=== PATIENT | female | born 1940 | race Caucasian/White ===

== ENCOUNTER 2016-05-12 15:38 | Emergency (ER) | payer OTHER ==
[2016-05-12 15:49] VITALS: BP 127/69; PULSE 71; TEMP 97.8; BMI 20.3
[2016-05-12] MEDS ORDERED: ACETAMINOPHEN 325 MG TABLET (FP) PO ONE (16:40)
[2016-05-12] MEDS ORDERED: ACETAMINOPHEN 325 MG TABLET (FP) ONE (16:41)
--- NOTE | 2016-05-12 16:43 | PDOC ---
History of Present Illness - History of Present Illness Initial Comments: 05/12/16 16:43 The patient is a year old female, with a significant past medical history of, who presents ambulatory to the emergency department with active bleeding today from an incision from a recent LINQ procedure performed earlier this morning at [facility]. She states she was visiting museums after her procedure in the city and was prompted to come to the ED after noticing her blouse and bandage was wet with blood when she arrived at home. She denies chest pain, shortness of breath, headache and dizziness. She denies fever, chills, nausea, vomit, diarrhea and constipation. She denies dysuria, frequency, urgency and hematuria. Allergies: alendronate sodium Past surgical history: LINQ Social history: denies toxic habits <Amanda Sanchez - Last Filed: 05/12/16 16:45> <Riley Garza - Last Filed: 05/12/16 17:15> - General Chief Complaint: Laceration Stated Complaint: BLEEDING FROM PROCEDURE SITE Time Seen by Provider: 05/12/16 15:52 Past History <Amanda Sanchez - Last Filed: 05/12/16 16:45> - Past Medical History Cardiac Disorders: Yes (AFIB) - Psycho/Social/Smoking Cessation Hx Anxiety: No Suicidal Ideation: No Smoking History: Never smoked Hx Alcohol Use: Yes Drug/Substance Use Hx: No Substance Use Type: Alcohol <Riley Garza - Last Filed: 05/12/16 17:15> - Past Medical History Allergies/Adverse Reactions: Allergies Allergy/AdvReac Type Severity Reaction Status Date / Time alendronate sodium Allergy Verified 05/12/16 15:41 [From Fosamax] Home Medications: Ambulatory Orders Aspirin [ASA -] 162 mg PO DAILY 05/12/16 Metoprolol Succinate [Toprol Xl -] 25 mg PO DAILY 05/12/16 Review of Systems - Review of Systems Able to Perform ROS?: Yes Comments:: 05/12/16 16:43 CONSTITUTIONAL: Absent: fever, chills, diaphoresis, generalized weakness, malaise, loss of appetite HEENT: Absent: rhinorrhea, nasal congestion, throat pain, throat swelling, difficulty swallowing, mouth swelling, ear pain, eye pain, visual Changes CARDIOVASCULAR: Absent: chest pain, syncope, palpitations, irregular heart rate, lightheadedness , peripheral edema RESPIRATORY: Absent: cough, shortness of breath, dyspnea with exertion, orthopnea, wheezing, stridor, hemoptysis GASTROINTESTINAL: Absent: abdominal pain, abdominal distension, nausea, vomiting, diarrhea, constipation, melena, hematochezia GENITOURINARY: Absent: dysuria, frequency, urgency, hesitancy, hematuria, flank pain, genital pain MUSCULOSKELETAL: Absent: myalgia, arthralgia, joint swelling SKIN: (+) active bleeding from surgical incision on her left chest. Absent: rash, itching, pallor HEMATOLOGIC/IMMUNOLOGIC: Absent: easy bruising, lymphadenopathy, frequent infections ENDOCRINE: Absent: unexplained weight gain, unexplained weight loss, heat intolerance, cold intolerance NEUROLOGIC: Absent: headache, focal weakness or paresthesia, dizziness, unsteady gait, seizure, mental status changes, bladder or bowel incontinence PSYCHIATRIC: Absent: anxiety, depression, suicidal or homicidal ideation, hallucinations <Amanda Sanchez - Last Filed: 05/12/16 16:45> *Physical Exam - Vital Signs Last Vital Signs Temp Pulse Resp BP Pulse Ox 97.8 F 71 16 127/69 100 05/12/16 15:41 05/12/16 15:41 05/12/16 15:41 05/12/16 15:41 05/12/16 15:41 - Physical Exam Comments: 05/12/16 16:44 GENERAL: Well developed, well nourished. Awake and alert. No acute distress. HEENT: Normocephalic, atraumatic. PERRLA, EOMI. No conjunctival pallor. Sclera are non- icteric. Moist mucous membranes. Oropharynx is clear. NECK: Supple. Full ROM. No JVD. Carotid pulses 2+ and symmetric, without bruits. No thyromegaly. No lymphadenopathy. CARDIOVASCULAR: Regular rate and rhythm. No murmurs, rubs, or gallops. Distal pulses are 2+ and symmetric. PULMONARY: No evidence of respiratory distress. Lungs clear to auscultation bilaterally. No wheezing, rales or rhonchi. ABDOMINAL: Soft. Non-tender. Non-distended. No rebound or guarding. No organomegaly. Normoactive bowel sounds. MUSCULOSKELETAL Normal range of motion at all joints. No bony deformities or tenderness. No CVA tenderness. EXTREMITIES: No cyanosis. No clubbing. No edema. No calf tenderness. SKIN: (+) Over the sterum 1cm incision that is covered by a steri strip, which is in place and adherent to the wound. There is blood surrounding the wound suggestive of prior hemorrhage. No active bleeding noted or hematomas palpable or visible. Pressure dressing was applied and a wide rekha wrap was used for compression around chest, the hemorrhage apparently controlled at present. . Warm and dry. Normal capillary refill. No rashes. No jaundice. NEUROLOGICAL: Alert, awake, appropriate. Cranial nerves 2-12 intact. No motor deficits in the upper extremities and lower extremities. Normoreflexic in the upper and lower extremities. Normal speech. Gait is normal without ataxia. PSYCHIATRIC: Cooperative. Good eye contact. Appropriate mood and affect. <Amanda Sanchez - Last Filed: 05/12/16 16:45> - Vital Signs Last Vital Signs Temp Pulse Resp BP Pulse Ox 97.8 F 71 16 127/69 100 05/12/16 15:41 05/12/16 15:41 05/12/16 15:41 05/12/16 15:41 05/12/16 15:41 <Riley Garza - Last Filed: 05/12/16 17:15> Medical Decision Making - Medical Decision Making 05/12/16 17:13 Patient on baby aspirin had minor procedure today in the morning, insertion of a subcutaneous dye box operator in the anterior chest. She had a day of vigorous activity. This afternoon she noticed bleeding from the site. There is mild pain but no swelling. Edges of the wound are well approximated and there is no persistent hemorrhage at present. There is no mass or hematoma. Pressure dressing was applied, rest was advised, to return if bleeding recurs, otherwise contact surgeon in the morning for further instructions. Fully ambulatory, bleeding controlled, and in no significant pain or other distress upon discharge to follow-up as needed. <Riley Garza - Last Filed: 05/12/16 17:15> *DC/Admit/Observation/Transfer - Attestations Scribe Attestion: 05/12/16 16:45 Documentation prepared by Amanda Sanchez, acting as medical manager for Riley Rg MD <Amanda Sanchez - Last Filed: 05/12/16 16:45> - Discharge Dispostion Admit: No <Riley Garza - Last Filed: 05/12/16 17:15> Diagnosis at time of Disposition: Hemorrhage - Discharge Dispostion Disposition: HOME Condition at time of disposition: Stable - Patient Instructions Printed Discharge Instructions: DI for Post-Surgical Bleeding Additional Instructions: Rest, recumbency tonight. Maintained gentle pressure on the wound if bleeding recurs. Return to the ER if bleeding returns and is uncontrolled. Contact your doctor tomorrow for further recommendation.
== END 2016-05-12 16:52 | disposition home or self-care (01) ==
LOC: FER 15:38
DX: L76.22 Postprocedural hemorrhage of skin and subcutaneous tissue following other procedure (principal); I48.91 Unspecified atrial fibrillation; Z79.82 Long term (current) use of aspirin
CPT/HCPCS: 99282-25